=== PATIENT | male | born 1995 | race Hispanic/Latino ===

== ENCOUNTER 2022-05-07 18:06 | Emergency (ER) | payer OTHER ==
--- NOTE | 2022-05-07 19:04 | ER ---
Nurse's Notes [facility] Name: Alonso Wynn Age: 26 yrs Sex: Male : 1995 Arrival Date: 05/07/2022 Time: 18:07 Bed DX3 Private MD: Diagnosis: Contusion of nose, initial encounter;Epistaxis;Unspecified injury of head, initial encounter Presentation: 05/07 18:12 Chief complaint: Patient states: "I was boxing and I think my nose is broken.". hb Coronavirus screen: At this time, the client does not indicate any symptoms associated with coronavirus-19. Ebola Screen: No symptoms or risks identified at this time. Initial Sepsis Screen: Does the patient meet any 2 criteria? No. Patient's initial sepsis screen is negative. Does the patient have a suspected source of infection? No. Patient's initial sepsis screen is negative. Risk Assessment: Do you want to hurt yourself or someone else? Patient reports no desire to harm self or others. Onset of symptoms was May 07, 2022. 18:12 Method Of Arrival: Ambulatory hb 18:12 Acuity: SAM 4 hb Historical: - Allergies: 18:13 Iodine; hb Vital Signs: 18:12 BP 132 / 76; Pulse 77; Resp 16; Temp 98.3; Pulse Ox 98% on R/A; Weight 74.84 kg; Height hb 5 ft. 8 in. (172.72 cm); Pain 5/10; 18:12 Body Mass Index 25.09 (74.84 kg, 172.72 cm) hb ED Course: 18:07 Patient arrived in ED. ja2 18:08 Claudia Smith FNP-C is PHCP. snw 18:08 Spencer Montes MD is Attending Physician. snw 18:13 Triage completed. hb 18:14 Arm band placed on. hb 19:00 Nasal Bones XRAY In Process Unspecified. EDMS Administered Medications: No medications were administered Outcome: 19:04 Discharge ordered by . snw 19:29 Patient left the ED. ll3 Signatures: Dispatcher [employer] EDMS Claudia Smith FNP-C BUSINESS DEVELOPMENT SPECIALIST-Csnw Yvette Mejia RN RN Chayo Saeed ja2 Marcos Sarmiento RN RN ll3 Corrections: (The following items were deleted from the chart) 18:14 18:13 Allergies: No Known Allergies; hb hb
--- NOTE | 2022-05-07 19:04 | EDPHYS ---
Physician Documentation [facility] Name: Alonso Wynn Age: 26 yrs Sex: Male : 1995 Arrival Date: 05/07/2022 Time: 18:07 Bed DX3 Private MD: ED Physician Spencer Montes HPI: 05/07 18:18 This 26 yrs old Male presents to ER via Ambulatory with complaints of Nose Injury. snw 18:18 The patient presents with a nose bleed, that is apparently anterior, from the right snw nare, occurred after direct blow, that is moderate amount with clots, causative factors include: boxing match. Onset: The symptoms/episode began/occurred suddenly, just prior to arrival. Associated signs and symptoms: The patient has no apparent associated signs or symptoms, Loss of consciousness: the patient experienced no loss of consciousness. It is unknown whether or not the patient has had similar symptoms in the past. It is unknown whether or not the patient has recently seen a physician. Historical: - Allergies: 18:13 Iodine; hb ROS: 18:17 Constitutional: Negative for fever, chills, and weight loss, Eyes: Negative for injury, snw pain, redness, and discharge, Neck: Negative for injury, pain, and swelling, Cardiovascular: Negative for chest pain, palpitations, and edema, Respiratory: Negative for shortness of breath, cough, wheezing, and pleuritic chest pain, Abdomen/GI: Negative for abdominal pain, nausea, vomiting, diarrhea, and constipation, Back: Negative for injury and pain, : Negative for injury, bleeding, discharge, and swelling, MS/Extremity: Negative for injury and deformity, Skin: Negative for injury, rash, and discoloration, Neuro: Negative for headache, weakness, numbness, tingling, and seizure, Psych: Negative for depression, anxiety, suicide ideation, homicidal ideation, and hallucinations. 18:17 ENT: Positive for injury or acute deformity, contusion, nose bleed. Exam: 18:16 Constitutional: This is a well developed, well nourished patient who is awake, alert, snw and in no acute distress. Eyes: Pupils equal round and reactive to light, extra-ocular motions intact. Lids and lashes normal. Conjunctiva and sclera are non-icteric and not injected. Cornea within normal limits. Periorbital areas with no swelling, redness, or edema. ENT: Nares patent. No nasal discharge, no septal abnormalities noted. Tympanic membranes are normal and external auditory canals are clear. Oropharynx with no redness, swelling, or masses, exudates, or evidence of obstruction, uvula midline. Mucous membranes moist. Neck: Trachea midline, no thyromegaly or masses palpated, and no cervical lymphadenopathy. Supple, full range of motion without nuchal rigidity, or vertebral point tenderness. No Meningismus. Chest/axilla: Normal chest wall appearance and motion. Nontender with no deformity. No lesions are appreciated. Cardiovascular: Regular rate and rhythm with a normal S1 and S2. No gallops, murmurs, or rubs. Normal PMI, no JVD. No pulse deficits. Respiratory: Lungs have equal breath sounds bilaterally, clear to auscultation and percussion. No rales, rhonchi or wheezes noted. No increased work of breathing, no retractions or nasal flaring. Abdomen/GI: Soft, non-tender, with normal bowel sounds. No distension or tympany. No guarding or rebound. No evidence of tenderness throughout. Back: No spinal tenderness. No costovertebral tenderness. Full range of motion. MS/ Extremity: Pulses equal, no cyanosis. Neurovascular intact. Full, normal range of motion. Neuro: Awake and alert, GCS 15, oriented to person, place, time, and situation. Cranial nerves II-XII grossly intact. Motor strength 5/5 in all extremities. Sensory grossly intact. Cerebellar exam normal. Normal gait. Psych: Awake, alert, with orientation to person, place and time. Behavior, mood, and affect are within normal limits. 18:16 Head/face: Noted is contusion, that is deep, of the nasal bridge, epistaxis, resolved, swelling, that is moderate, of the nose, tenderness, that is moderate. 18:16 Skin: Appearance: normal except for affected area, injury, contusion(s), bilateral shoulders s/p boxing match. Vital Signs: 18:12 BP 132 / 76; Pulse 77; Resp 16; Temp 98.3; Pulse Ox 98% on R/A; Weight 74.84 kg; Height hb 5 ft. 8 in. (172.72 cm); Pain 5/10; 18:12 Body Mass Index 25.09 (74.84 kg, 172.72 cm) hb MDM: 18:10 Patient medically screened. snw 19:06 Differential diagnosis: nasal fracture, trauma, epistaxis r/t trauma. Data reviewed: snw vital signs, nurses notes, radiologic studies. Independent interpretation of the following test(s) in the Emergency Department X-Ray: My interpretation is no noted nasal bone fx. Counseling: I had a detailed discussion with the patient and/or guardian regarding: the historical points, exam findings, and any diagnostic results supporting the discharge/admit diagnosis, radiology results, the need for outpatient follow up, to return to the emergency department if symptoms worsen or persist or if there are any questions or concerns that arise at home. Special discussion: Based on the history and exam findings, there is no indication for further emergent testing or inpatient evaluation. I discussed with the patient/guardian the need to see the ENT specialist for further evaluation of the symptoms. I discussed with the patient/guardian the need to see the primary care provider for further evaluation of the symptoms. 05/07 18:14 Order name: Nasal Bones XRAY; Complete Time: 19:11 snw Administered Medications: No medications were administered Disposition Summary: 05/07/22 19:04 Discharge Ordered Location: Home snw Condition: Stable snw Diagnosis - Contusion of nose, initial encounter snw - Epistaxis snw - Unspecified injury of head, initial encounter snw Followup: snw - With: Private Physician - When: 2 - 3 days - Reason: Recheck today's complaints, Continuance of care, Re-evaluation by your physician Followup: snw - With: Emergency Department - When: As needed - Reason: Worsening of condition Discharge Instructions: - Discharge Summary Sheet snw - Nosebleed, Adult snw - Facial or Scalp Contusion snw - Head Injury, Adult snw - How to Use Cold Therapy snw Forms: - Medication Reconciliation Form snw - Thank You Letter snw - Antibiotic Education snw - Prescription Opioid Use snw Prescriptions: - Afrin (oxymetazoline) 0.05 % Nasal spray,non-aerosol - spray 2 spray by INTRANASAL route 2 times per day; 1 bottle; Refills: 0, snw Product Selection Permitted - Tramadol 50 mg Oral Tablet - take 1 tablet by ORAL route every 8 hours as needed; 12 tablet; Refills: 0, snw Product Selection Permitted Signatures: Dispatcher [employer] EDMS Claudia Smith, DECAL MAKER-C DECAL MAKER-Csnw Yvette Mejia, RN RN hb Corrections: (The following items were deleted from the chart) 18:14 18:13 Allergies: No Known Allergies; hb hb
--- NOTE | 2022-05-07 19:07 | RAD REPORT ---
EXAM DESCRIPTION: RAD - Nasal Bones - 05/07/2022 6:59 pm CLINICAL HISTORY: epistaxis COMPARISON: <Comparisons> FINDINGS/IMPRESSION: No displaced nasal bone fracture is appreciated.
[2022-05-07 19:58] VITALS: BP 132/76; TEMP 98.3; O2SAT 98
== END 2022-05-07 19:29 | disposition home or self-care (01) ==
LOC: ER 18:06
DX: S00.33XA Contusion of nose, initial encounter (principal); R04.0 Epistaxis; S09.90XA Unspecified injury of head, initial encounter; Z91.048 Other nonmedicinal substance allergy status
CPT/HCPCS: 70160; 99282